=== PATIENT | female | born 2000 | race African-American/Black ===

== ENCOUNTER 2023-05-10 10:24 | Outpatient (CLI) | payer MEDICAID ==
[2023-05-10] VITALS (8 sets, daily range): BP systolic 83–112; BP diastolic 34–62; PULSE 66–99
== END 2023-05-10 23:59 | disposition home or self-care (01) ==
LOC: CARD DIAG 10:24
PROVIDERS: ATTEND Physician Assistant
DX: R55 Syncope and collapse (principal)
CPT/HCPCS: 93660

== ENCOUNTER 2024-02-05 00:45 | Emergency (ER) | payer MEDICAID ==
[~2024-02-05] VITALS: Ht 157.5 cm; Wt 59.1 kg
[2024-02-05 01:36] LABS: EOSINOPHILS # (AUTO) 0.4 X10'3 (0-0.9); HEMATOCRIT 37.1 % (35.0-45.0); MONOCYTES # (AUTO) 0.4 X10'3 (0-0.9)
[2024-02-05 01:38] LABS: BASOPHILS % (AUTO) 0.5 % (0-1); HEMOGLOBIN 12.6 g/dl (12.0-16.0); LYMPHOCYTES # (AUTO) 3.5 X10'3 (1.1-4.8); LYMPHOCYTES % (AUTO) 56.6 % (21-51); MEAN CORPUSCULAR HGB CONC 33.9 g/dL (33.0-36.5); MEAN CORPUSCULAR VOLUME 88.7 FL (78-98); MONOCYTES % (AUTO) 5.6 % (2-12); NEUTROPHILS % (AUTO) 31.3 % (42-75); PLATELET COUNT 262 X10'3 (140-440); RED BLOOD COUNT 4.18 X10'6 (4.20-5.60); RED CELL DISTRIBUTION WIDTH 12.6 % (11.5-14.5); WHITE BLOOD COUNT 6.3 X10'3 (4.5-11.0)
[2024-02-05 01:57] LABS: THYROID STIMULATING HORMONE 2.43 ulU/ml (0.34-4.50)
[2024-02-05 02:02] LABS: ETHANOL < 10 MG/DL (<10)
[2024-02-05 02:11] LABS: PLATELET ESTIMATE NORMAL; TOTAL CELLS COUNTED 100
[2024-02-05] MEDS ORDERED: ESCI20TA PO (02:48)
[2024-02-05] MEDS ORDERED: MIDO5TAB4 PO (02:49)
[2024-02-05] MEDS ORDERED: LEVO1TBD13 PO (02:50)
[2024-02-05 02:58] LABS: URINE HCG NEGATIVE (NEG)
[2024-02-05 02:58] LABS: ALANINE AMINOTRANSFERASE 18 U/L (12-78); ALBUMIN 3.8 G/DL (3.4-5.0); ALKALINE PHOSPHATASE 38 IU/L (46-116); ANION GAP 10 (8-16); ASPARTATE AMINO TRANSFERASE 18 U/L (10-37); BILIRUBIN,TOTAL 0.2 MG/DL (0.1-1.0); BLOOD UREA NITROGEN 8 MG/DL (7-18); BUN/CREATININE RATIO 11.1 (10.0-20.0); CALCIUM 9.3 MG/DL (8.5-10.1); CHLORIDE 104 MMOL/L (99-107); CREATININE 0.72 MG/DL (0.40-0.90); GLUCOSE 92 MG/DL (70-104); SODIUM 138 MMOL/L (135-145); TOTAL CARBON DIOXIDE 24.1 MMOL/L (24-32); TOTAL PROTEIN 7.7 G/DL (6.4-8.2); eCRCL 97 ML/MIN; eGFR > 90 ML/MIN
[2024-02-05 03:06] LABS: BILIRUBIN,URINE NEGATIVE (Neg); CLARITY,URINE CLEAR (Clear); COLOR,URINE YELLOW (Yellow); GLUCOSE, URINE NEGATIVE (Neg); KETONES,URINE NEGATIVE (Neg); LEUKOCYTE ESTERASE ,URINE NEGATIVE (Neg); NITRITES, URINE NEGATIVE (Neg); OCCULT BLOOD,URINE NEGATIVE (Neg); PH,URINE 5.5 (4.8-8.0); PROTEIN,URINE NEGATIVE (Neg); UA COLLECTION TYPE CLN CATCH MIDSTREAM
[2024-02-05 03:07] LABS: URINE AMPHETAMINE SCREEN NEGATIVE (Neg); URINE BARBITUATE SCREEN NEGATIVE (Neg); URINE BENZODIAZEPINES SCREEN NEGATIVE (Neg); URINE CANNABINOID SCREEN POSITIVE (Neg); URINE COCAINE SCREEN NEGATIVE (Neg); URINE METHADONE SCREEN NEGATIVE (Neg); URINE OPIATE SCREEN NEGATIVE (Neg); URINE PHENCYCLIDINE SCREEN NEGATIVE (Neg)
[2024-02-05] MEDS ORDERED: METH10TA4 PO (03:12)
[2024-02-05] MEDS: LEVONORGESTREL ETHIN ESTRADIOL PO SCH (08:00)
[2024-02-05 08:55] VITALS: BP 92/62; PULSE 65; RESP 14; TEMP 96.7; O2SAT 98
[2024-02-05] MEDS: methylphenidate 5mg tablet PO SCH (08:55)
[2024-02-05] MEDS: midodrine 5mg tablet PO SCH (08:55)
[2024-02-05] MEDS: ESCITALOPRAM 10 mg tablet 10 MG TABLET PO SCH (08:56)
== END 2024-02-05 10:12 | disposition home or self-care (01) ==
LOC: ER 00:46
DX: R45.851 Suicidal ideations (principal); Z20.822 Contact with and (suspected) exposure to COVID-19; J45.909 Unspecified asthma, uncomplicated; Z79.899 Other long term (current) drug therapy
CPT/HCPCS: 36415; 80053; 80305; 80320; 81003; 81025; 84443; 85007; 85025; 87811; 99284